=== PATIENT | female | born 1965 | race Caucasian/White ===

== ENCOUNTER 2018-01-16 15:42 | Emergency (ER) | payer MEDICAID ==
[~2018-01-16] VITALS: Ht 162.6 cm; Wt 59.4 kg
[2018-01-16 15:46] VITALS: Ht 162.6 cm; Wt 59.4 kg
[2018-01-16 17:32] LABS: BASOPHIL % 0.3 % (0-2); PLATELET COUNT 366 x10^3mcL (130-400)
[2018-01-16 17:34] LABS: RED CELL DISTRIBUTION WIDTH 14.7 % (11.5-14.5)
[2018-01-16 17:41] LABS: CALCIUM 8.5 mg/dL (8.5-10.1); CHLORIDE SERUM 102 mmol/L (98-107); CREATININE SERUM 0.9 mg/dL (0.6-1.0); GFR1 > 60 mL/min; GLUCOSE SERUM 95 mg/dL (74-106); POTASSIUM SERUM 3.3 mmol/L (3.5-5.1); SODIUM SERUM 136 mmol/L (136-145)
[2018-01-16 17:53] LABS: ALKALINE PHOSPHATASE 137 U/L (46-116); ALT/SGPT 26 U/L (14-59); AST/SGOT 21 U/L (15-37); BILIRUBIN TOTAL 0.2 mg/dL (0.20-1.00); T4(THYROXINE) 11.5 ug/dL (4.7-13.3); TOTAL PROTEIN, SERUM 8.2 g/dL (6.4-8.2)
[2018-01-16 17:59] LABS: AMPHETAMINE QUAL UR POSITIVE (See below)
[2018-01-16 20:10] VITALS: BP 124/79
== END 2018-01-16 20:10 | disposition home or self-care (01) ==
LOC: ED 15:42
PROVIDERS: Emergency Medicine
DX: R60.0 Localized edema (principal); D64.9 Anemia, unspecified; F15.10 Other stimulant abuse, uncomplicated
CPT/HCPCS: 83880; J1940; Q0092